=== PATIENT | male | born 1955 | race Caucasian/White ===

== ENCOUNTER → 2016-06-03 | Day surgery (SDC) | payer BC ==
[~2016-06-03] MED LIST: BUPIVACAINE HCL PF 0.75% 30 ML VIAL ONE; BUPIVACAINE/EPINEPHRINE 0.25% PF 30 ML VIAL ONE; FENO54TA PO; LACTATED RINGER'S 1000 ML INJ 1,000 ML ONE; LIDOCAINE 1.5%/EPINEPHrine 1:200,000 PF SOLN 30 ML AMP ONE; MIDAZOLAM HCL 5 MG/ML VIAL (1 ML) ONE; PERC10TA27 PO; PROPOFOL 200 MG/20 ML AMP IV ONE; ceFAZolin INJ 1,000 MG VIAL ONE
--- NOTE | 2016-06-06 16:15 | MP ---
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 SURGEON: Pascual Rivas MD. RN OR LVN: SHAKILA Cabrera. RN OR LVN SHAKILA Barlow The surgical procedure was assisted by my Advanced Registered Nurse Practitioner. My MOTORBOAT MECHANIC presence was necessary throughout this case for the manipulation and positioning of the surgical extremity. My MOTORBOAT MECHANIC was assisting me throughout the duration of this procedure. The skill set of an Advance Registered Nurse Practitioner was medically necessary to complete this procedure. During the surgical case, the assembler surgical garment was working at the back table and the Advance Registered Nurse Practitioner was directly assisting me. PROCEDURE: Left shoulder open rotator cuff repair of the subscapularis tendon. SPECIMEN Synovial culture x1 ESTIMATED BLOOD LOSS: blood loss was minimal. ANESTHESIA Regional and general PROCEDURE The patient had regional anesthesia performed. He was brought back to operative theater. General anesthesia was then performed received intravenous Ancef. The patient is placed into a beach-chair position and the left upper she was prepped and draped in usual sterile fashion. We made standard incision through the previous anterior incision dissected through the deltopectoral interval. There was scar tissue in this region as to be expected we identified the conjoined tendon. We made sure to protect the vessels medially. We identified that the lower portion of the subscapularis tendon was intact however, the mid and proximal portion was ruptured and we did perform a arthrotomy which revealed about 7 cc of clear yellow fluid which was viscus there was no signs infection. We decided to send this for culture. There were a couple sutures which were still attached laterally but had been torn through the mid and proximal aspect of the subscapularis tendon which was retracted to the medial third of the humeral head. We then repaired the subscapularis tendon back to the anatomic position with multiple #2 fiber wires in interrupted fashion. [id number] fashion. Note that we did irrigate the joint prior to closure and then we irrigated afterwards. Note that the medial portion of the humeral component was unremarkable. We did not visualize the glenoid component was then closed skin with 2-0 Vicryl followed by 3-0 nylon. The patient's arm was dressed. His placed into a sling and swath. Postop plan is to avoid active internal rotation and also passive external rotation only to 0 degrees. Pascual Rivas MD / /2:05 PM /4:09 PM
== END | disposition home or self-care (01) ==
LOC: ESDC 09:50
PROVIDERS: ATTEND Orthopaedic Surgery
DX: S46.012A Strain of muscle(s) and tendon(s) of the rotator cuff of left shoulder, initial encounter (principal); Z96.612 Presence of left artificial shoulder joint
CPT/HCPCS: 01610; 01991; 23412; 64417; 87070; 87205; J0690; J2250; J7120

== ENCOUNTER 2017-05-08 08:44 | Day surgery (SDC) | payer OTHER ==
[~2017-05-08] VITALS: Ht 180.3 cm; Wt 100.0 kg
[2017-05-08] VITALS (7 sets, daily range): BP systolic 94–119; BP diastolic 54–86; PULSE 67–83; RESP 16–20; TEMP 97.5–98.2; O2SAT 91–95
[~2017-05-08 08:44] MED LIST changes: -BUPIVACAINE HCL PF 0.75% 30 ML VIAL ONE; -BUPIVACAINE/EPINEPHRINE 0.25% PF 30 ML VIAL ONE; -LACTATED RINGER'S 1000 ML INJ 1,000 ML ONE; -LIDOCAINE 1.5%/EPINEPHrine 1:200,000 PF SOLN 30 ML AMP ONE; -MIDAZOLAM HCL 5 MG/ML VIAL (1 ML) ONE; -PROPOFOL 200 MG/20 ML AMP IV ONE; -ceFAZolin INJ 1,000 MG VIAL ONE
[2017-05-08] MEDS ORDERED: MOBI15TA PO (09:13)
[2017-05-08] MEDS ORDERED: HYDR-3583 PO (09:13)
[2017-05-08 09:26] LABS: AUTOMATED NEUTROPHIL # 3.8 TH/MM3 (1.8-7.7); BASOPHIL # 0.1 TH/MM3 (0-0.2); BASOPHIL % 0.7 % (0.0-2.0); EOSINOPHIL # 0.2 TH/MM3 (0-0.4); EOSINOPHIL % 2.1 % (0.0-4.0); HEMATOCRIT 48.1 % (39.0-51.0); HEMOGLOBIN 15.9 GM/DL (13.0-17.0); LYMPH % 34.8 % (9.0-44.0); LYMPHOCYTE # 2.6 TH/MM3 (1.0-4.8); MEAN CELL VOLUME 83.5 FL (80.0-100.0); MEAN CORPUSCULAR HEMOGLOBIN 27.6 PG (27.0-34.0); MEAN PLATELET VOLUME 8.5 FL (7.0-11.0); MONO % 11.7 % (0.0-8.0); MONOCYTE # 0.9 TH/MM3 (0-0.9); NEUT % 50.7 % (16.0-70.0); PLATELET COUNT 220 TH/MM3 (150-450); RED BLOOD COUNT 5.77 MIL/MM3 (4.50-5.90); RED CELL DISTRIBUTION WIDTH 13.9 % (11.6-17.2); WHITE BLOOD COUNT 7.5 TH/MM3 (4.0-11.0)
[2017-05-08] MEDS ORDERED: SODIUM CHLOR 0.9% 1000 ML IV SCH (09:30)
[2017-05-08 09:36] LABS: PROTHROMBIN TIME - PATIENT 10.3 SEC (9.8-11.6)
[2017-05-08] MEDS ORDERED: MIDAZOLAM HCL 2 MG/2 ML VIAL ONE (10:53)
[2017-05-08] MEDS ORDERED: LIDOCAINE HCL 1% 20 ML VIAL ONE (11:04)
[2017-05-08] MEDS ORDERED: HYDROmorphone HCL 2 MG TAB PO PRN (11:45)
--- NOTE | 2017-05-08 16:00 | RADRPT ---
EXAM DATE/TIME: 05/08/2017 11:18 [place] COMPARISON: No previous studies available for comparison. INDICATIONS : Chronic hepatitis C. SEDATION TIME: 15 minutes BIOPSY SITE: Right flank MEDICATION(S): 1.) 2 mg midazolam (Versed) IV 2.) 100 mcg fentanyl (Sublimaze) IV DEVICE(S): 1.) 18 gauge Temno core biopsy needle MEDICAL HISTORY : Hepatitis C. Colon polyps. SURGICAL HISTORY : Cervical fusion. ENCOUNTER: Initial ACUITY: 1 day PAIN SCORE: 0/10 LOCATION: Right flank A total of one core specimen(s) were obtained and sent to the laboratory for pathologic evaluation. PROCEDURE: 1. CT guided liver biopsy. Prior to the procedure informed consent was obtained. Any appropriate prior imaging studies were rev iewed. Using automated exposure control and adjustment of the mA and/or kV according to patient size, radiat ion dose was kept as low as reasonably achievable to obtain optimal diagnostic quality images. DICOM format image data is available electronically for review and comparison. The site was prepped in a sterile fashion. Full sterile technique was used, including cap, mask, lilia rile gloves and gown and a large sterile sheet. Hand hygiene and 2% chlorhexidine and/or betadine/al cohol prep was utilized per protocol for cutaneous antisepsis. The skin and subcutaneous tissues wer e infiltrated with local anesthetic solution. With CT guidance the previously identified target was localized. Biopsy was performed using the presc ribed needle as above. Adequate hemostasis was obtained with compression at the puncture site. Follow-up CT scan reveals no hemorrhage. The patient tolerated the procedure well and there were no complications. The patient was returned to the Radiology Outpatient Unit in stable condition. CONCLUSION: Uncomplicated CT guided biopsy. Tod Armenta MD on May 08, 2017 at 15:57 Board Certified Radiologist. This report was verified electronically.
== END 2017-05-08 15:30 | disposition home or self-care (01) ==
LOC: HRAD 08:44 → HRIP 08:46 → HRAD 15:30
DX: B18.2 Chronic viral hepatitis C (principal); K57.90 Diverticulosis of intestine, part unspecified, without perforation or abscess without bleeding; Z01.818 Encounter for other preprocedural examination
CPT/HCPCS: 47000; 77012; 85025; 85610; 85730; 88307; 88313; J2250; J3010; J7030